=== PATIENT | female | born 1970 | race Caucasian/White ===

== ENCOUNTER 2017-09-10 20:13 | Emergency (ER) | payer OTHER ==
[~2017-09-10] VITALS: Ht 157.5 cm; Wt 61.2 kg
[2017-09-10 20:16] VITALS: BP 125/78
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
--- NOTE | 2017-09-10 21:16 | NUR ---
Sariah pereira in [facility] - 09/10/17 at 2116 by JOSÉ MANUEL FINGER XRAYS DONE.
[2017-09-10] MEDS ORDERED: ACETAMINOPHEN ES 500 MG TABLET ONE (21:17)
[2017-09-10] MEDS: ACETAMINOPHEN 325 MG TABLET PO ONE (21:19)
--- NOTE | 2017-09-10 21:19 | NUR ---
PT MEDICATED ORDERED.
--- NOTE | 2017-09-10 22:50 | NUR ---
PT LEFT WITHOUT DISCHARGE INSTRUCTIONS. MD MADE AWARE.
== END 2017-09-10 22:57 | disposition home or self-care (01) ==
LOC: ER 20:13
DX: M25.532 Pain in left wrist (principal); Y04.8XXA Assault by other bodily force, initial encounter; Y93.89 Activity, other specified; Y92.89 Other specified places as the place of occurrence of the external cause; Y99.8 Other external cause status
CPT/HCPCS: 73090-TC; 73110; A4606; Z7610